=== PATIENT | female | born 1980 | race Caucasian/White ===

== ENCOUNTER 2019-09-09 07:48 | Emergency (ER) | payer MEDICARE, MEDICAID ==
[~2019-09-09] VITALS: Ht 170.2 cm; Wt 69.8 kg
[2019-09-09 08:29] LABS: URINE BLOOD 2+ (Negative); URINE CLARITY SL CLOUDY; URINE COLOR DARK YELLOW; URINE GLUCOSE-RANDOM TRACE (Negative); URINE KETONES NEGATIVE (Negative); URINE LEUKOCYTES-REFLEX NEGATIVE (Negative); URINE NITRITE-REFLEX NEGATIVE (Negative); URINE PROTEIN 1+ (Negative); URINE SPECIFIC GRAVITY >= 1.030 (1.005-1.030); URINE UROBILINOGEN 0.2 E.U./dl (0.2-1.0)
[2019-09-09 08:31] LABS: ICTOTEST (BILI CONFIRMATORY) Negative (Negative); URINE BILIRUBIN 1+ (Negative)
[2019-09-09 08:35] LABS: SQUAMOUS >10 Many /LPF (0-3)
[2019-09-09 08:36] LABS: URINE WBC-REFLEX 6-15 Few /HPF (0-5)
[2019-09-09 08:37] LABS: BACTERIA-REFLEX >30 Many /HPF (None Seen); CRYSTALS None Seen /LPF (None Seen); MUCUS >6 Heavy strn/LPF (None Seen); URINE RBC 3-10 Few /HPF (0-2)
[2019-09-09 08:38] LABS: FINE GRANULAR CASTS 0-3 Few /LPF (None Seen); HYALINE CASTS 0-3 Few /LPF (None Seen)
[2019-09-09 08:52] LABS: HEMATOCRIT 39.1 % (37.0-47.0); MCHC 33.3 g/dL (28.0-37.0); MCV 78.2 fL (80.0-100.0); MPV 9.9 fl. (7.2-11.1); RDW-CV 19.2 % (10.5-14.5); WBC 7.1 thou/uL (4.0-11.0)
[2019-09-09 09:00] LABS: CREATININE 0.7 mg/dL (0.6-1.3)
[2019-09-09] MEDS ORDERED: ZOFRAN ODT4 MG DISSOLVE (09:07)
[2019-09-09] MEDS ORDERED: FLEXERIL PO (09:07)
[2019-09-09] MEDS ORDERED: IBUPROFEN 800800 M1 PO (09:07)
[2019-09-09] MEDS ORDERED: BACTRIM DS TAB1 EAC1 PO (09:07)
[2019-09-09 09:41] VITALS: BP 104/62
== END 2019-09-09 09:30 | disposition home or self-care (01) ==
LOC: M.ERS 07:48
PROVIDERS: Emergency Medicine Emergency Medical Services
DX: N39.0 Urinary tract infection, site not specified (principal); M54.6 Pain in thoracic spine; M54.5 Low back pain; R42 Dizziness and giddiness; R11.2 Nausea with vomiting, unspecified; Z88.5 Allergy status to narcotic agent; Z88.8 Allergy status to other drugs, medicaments and biological substances